=== PATIENT | male | born 1945 | race Caucasian/White ===

== ENCOUNTER → 2017-03-14 | Outpatient (CLI) | payer MEDICARE, OTHER ==
--- NOTE | 2017-03-14 14:53 | RADRPT ---
PROCEDURE: XR pelvis/right hip. CLINICAL INDICATION: Hip pain TECHNIQUE: AP pelvis/lateral right hip view performed COMPARISON: No prior studies are available for comparison. FINDINGS: There are multiple pelvic surgical clips. There is bilateral hip osteoarthrosis. This is associated with joint space narrowing, subchondral sc lerosis and osteophytosis. There is normal mineralization. No fractures or osseous lesions are srini ntified. The soft tissues are unremarkable. IMPRESSION: Bilateral hip osteoarthrosis. RPTAT: HGDB .Domingo Craven MD, MD Date Time Electronically viewed and signed by .Domingo Craven MD, on 03/14/2017 14:52 .B/
--- NOTE | 2017-03-14 21:46 | HKNOTE ---
DATE OF SERVICE: REFERRING PHYSICIAN: Dr. Gurmeet Casey, [id number] [facility], [address], [place] [address] MAIN COMPLAINT: Pain in the right hip. HISTORY OF MAIN COMPLAINT: The patient is a 72-year-old male who complains of pain in his right hip . Pain has been present for about 2 years. There has been no history of injury to the hip. He was seen by Dr. Gurmeet Casey who obtained x-rays and an MRI of the hip and referred him to me for f urther evaluation and treatment. PRESENT COMPLAINTS: The pain in his right hip is localized mainly in the groin, but there is also p ain in the right buttocks which radiates to the lower back. Pain radiates down the leg as well, as far as the ankle. Pain is aggravated by walking, weightbearing, and stair climbing, maybe on descending stairs. No re st pain or night pain. The patient takes Effexor at night. He also takes Vicodin for pain. He get s numbness and tingling in the left leg all the way down to the ankle (not on the right side). On a level surface, he can walk for about 2 blocks without stopping. He is not using a walking aid. He limps most of the time. The leg lengths feel equal. He does not have a shoe lift. He can barely clip his toenails and tie his shoelaces on the right side. SPORTING ACTIVITIES: None. PAST ORTHOPEDIC HISTORY: PREVIOUS ORTHOPEDIC OPERATIONS: None. PRIOR CORTISONE INTAKE: One injection (? where). ALCOHOL INTAKE: None. OTHER JOINT PROBLEMS: None. BLOOD TESTS FOR ARTHRITIS: None. PRIOR INJURIES TO HIPS OR KNEES: None. WORK STATUS: The patient is retired. PAST MEDICAL HISTORY: Prostate cancer. PREVIOUS MAJOR SURGERIES: 1. Two sinus surgeries and 1 throat surgery in 1950. 2. Prostatectomy for cancer in 2004. 2. Tonsils and adenoids removed, 194. DRUG ALLERGIES: NONE. MEDICATIONS: 1. Cymbalta 60 mg. 2. Effexor 75 mg. 3. Spironolactone 25 mg. 4. Lasix 40 mg. 5. Omeprazole 40 mg. 6. Seroquel 50 mg. 7. Lipitor 10 mg. 8. Vitamin C 1000 mg. 9. Multivitamins and minerals. 10. Melatonin 5 mg. PHYSICAL EXAMINATION: GENERAL: The patient is a fit-looking 72-year-old male. VITAL SIGNS: Height 5 feet 9 inches, weight 185 pounds. Blood pressure 125/82, temperature 98.3. GAIT: The patient's gait is minimally antalgic. He walks without a walking aid. BACK: Dynamic pain assessment reveals a pain free range of motion in flexion, extension, lateral be nding, and rotation. Inspection of the spine reveals no list. There is no lumbar paraspinal muscle spasm. The pelvis is level. Facet stress test is negative bilaterally. Palpation of the spine de monstrates no tenderness of the spinous processes, facet joints, sacroiliac joint, sciatic notch, or posterior thigh. NEUROLOGIC: Motor examination reveals no muscle deficit in the lower extremities. Deep tendon refl exes in the lower extremities: Right knee jerk plus, left knee jerk plus, right ankle jerk plus, le ft ankle jerk plus. Straight leg raising is negative bilaterally at 80 degrees. Lasegue and EMMA tests are negative. RIGHT HIP: A full range of motion, but with quite marked pain in the right groin at limits of motio n. No tenderness anywhere around the right hip. LEFT HIP: A full range of motion without pain. KNEES: Both knees are clinically normal. IMAGING: Plain x-rays of his pelvis and hips obtained today at [facility] were r [facility]leenw[facility]. These show 50% narrowing of the left hip joint space superiorly and 70% of narrowing of th e right hip joint space superiorly. Both hips show secondary changes of osteoarthritis including os teophyte formation and subchondral sclerosis. MRI scan of the right hip obtained on 02/22/[address] Mckay as showing "moderate o steoarthrosis of the right hip with partial thickness chondral loss. Mild areas of chondral loss to bone with mild osseous spurring and mild subchondral marrow edema with in the anterior acetabulum. Degenerative fraying of the entire labrum with blunting." DIAGNOSES: 1. Moderate degenerative osteoarthritis of the right hip. 2. Mild degenerative osteoarthritis of the left hip. 3. Hypercholesterolemia. 4. 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 5. Gastroesophageal reflux disease (GERD). MANAGEMENT: The patient is advised that he will eventually need to have a right hip replacement ope ration. The left hip will also start causing him significant symptoms in a very short time. He is only 72 years old and is in fairly good ____. I am assuming that he will need to have bilater al hip replacements within his lifetime. I plan to treat him conservatively for as long as we can. When the conservative measures, no longer help, we will opt for more aggressive tactics. Under sterile conditions, the patient was given injection of 2 mL of Kenalog and 6 mL of 2% lidocain e into the right hip joint. This gave him immediate and complete relief of his groin pain indicatin g that the needle had been placed properly into the hip. He will be seen again in 3 months' time for evaluation. Dictated By: BOGDAN COLES MD HH/NTS Conf#: [id number] DID#: [id number] CC: GURMEET CASEY MD;*End*
== END | disposition home or self-care (01) ==
LOC: HKI 14:07
DX: M25.551 Pain in right hip (principal); M16.0 Bilateral primary osteoarthritis of hip; K21.9 Gastro-esophageal reflux disease without esophagitis; E78.00 Pure hypercholesterolemia, unspecified
CPT/HCPCS: 20610; 73502; G0463